=== PATIENT | male | born 1940 | race Caucasian/White ===

== ENCOUNTER → 2017-02-06 | Outpatient (CLI) | payer MEDICARE ==
[~2017-02-06] MED LIST: AMARYL PO; HYDROCODON-ACE1 EAC9 PO; HYDROCODONE/APA1 T16 PO; METFORMIN HCL1000 M1 PO; OMEPRAZOLE40 M1 PO; PHENERGAN25 MG PO
--- NOTE | ~2017-02-06 | CT2 ---
[facility] A Service of [facility] RADIOLOGY TEXT RESULTS PATIENT: EDITA SILVERIO LOCATION: [facility]AT : 42 UNIT #: [id number] AGE: [address]: lA Rocha MD SEX: M ORDER DR: [id number] [facility] [address] [place], [place] [address] [id number] O MR#: [id number] Acc #: [id number] NAME: EDITA SILVERIO : 1940 SEX: M STUDY DATE/TIME: 02/06/2017 7:10 UNIT: [facility] ROOM: STUDY DESCRIPTION: CT Abd and Pelv W Cont Attending Physician: Al Rocha M.D. Referring Physician: Al Rocha M.D. Ordering Physician: Al Rocha M.D. Primary Care Physician: Vickey Thomas M.D. MEDICAL IMAGING REPORT This report is preliminary unless electronic signature is present EXAM CT abdomen and pelvis, 02/06. INDICATION Status post sigmoid resection for colon cancer. Observation of malignant neoplasm. Restaging. TECHNIQUE Axial images were obtained through the abdomen and pelvis following IV contrast administration. Multiplanar reformats were obtained. This CT exam was performed with one or more of the following radiation dose reduction techniques: automatic exposure control, adjustment of mA and/or kV according to patient size, and iterative reconstruction. COMPARISON Comparison is made with PET/CT from 09/16/2016. FINDINGS ABDOMEN: Minimal atelectasis or scarring in the right lower lobe and lingula. Lung bases are otherwise clear. Gallbladder unremarkable. No biliary obstruction. Right renal cyst is again seen. The solid organs are otherwise normal. No adenopathy is identified. There is continued generalized mild wall thickening in the colon. There is a moderate stool volume. This is much improved from the prior PET/CT, however. Correlate clinically to exclude mild residual colitis. GI tract evaluation is limited without oral contrast. Small bowel is grossly normal. PELVIS: There is a left lower quadrant colostomy. There is some parastomal herniation of fat. The lower colon distal to the colostomy is unremarkable. The distal small bowel is grossly normal. Urinary bladder is normal. No adenopathy. There is a developing fat containing inguinal hernia on the right. No suspicious osseous lesions in the abdomen or STS. [facility] A Service of [facility] RADIOLOGY TEXT RESULTS PATIENT: EDITA SILVERIO LOCATION: [facility] : 42 UNIT #: [id number] AGE: [address]: Al Rocha MD SEX: M ORDER DR: pelvis. IMPRESSION 1. No evidence of metastatic disease in the abdomen or pelvis. 2. Moderate stool in the colon may indicate constipation. Patient does have a left lower quadrant colostomy. 3. Mild residual colonic wall thickening. This is much improved since the prior PET/CT but could still reflect mild residual colitis. Correlate clinically in this regard. Dictated by... Javid Tse Jr., M.D. THIS IS AN ELECTRONICALLY VERIFIED REPORT Javid Tse Jr., M.D. at 02/09/2017 3:49 PM DAWN/suzan TD: 02/09/2017 14:58 JOB #: [id number] MEDICAL IMAGING REPORT Page 1 of 1 COPY
[2017-02-06 07:00] LABS: POC - GFR >60.0 mL/min (>60)
== END | disposition home or self-care (01) ==
LOC: CCAT 05:39
PROVIDERS: Internal Medicine Hematology
DX: Z08 Encounter for follow-up examination after completed treatment for malignant neoplasm (principal); D50.9 Iron deficiency anemia, unspecified; K63.89 Other specified diseases of intestine; Z93.3 Colostomy status; Z90.49 Acquired absence of other specified parts of digestive tract; Z85.038 Personal history of other malignant neoplasm of large intestine
CPT/HCPCS: 74177; 82565; Q9967

== ENCOUNTER → 2017-03-11 | Day surgery (SDC) | payer MEDICARE ==
--- NOTE | ~2017-03-11 | EKG ---
PATIENT: EDITA SILVERIO UNIT #: [id number] Ventricular Rate: 72 BPM Atrial Rate: 72 BPM P-R Interval: 166 ms QRS Duration: 90 ms Q-T Interval: 402 ms QTC Calculation(Bezet): 440 ms P Adell: 54 degrees Calculated R Adell: 76 degrees Calculated T Adell: 62 degrees Diagnosis Line: Normal sinus rhythm Diagnosis Line: Normal ECG Diagnosis Line: When compared with ECG of 26-AUG-2016 07:17, Diagnosis Line: Questionable change in QRS axis Diagnosis Line: Nonspecific T wave abnormality no longer evident Diagnosis Line: in Inferior leads Diagnosis Line: Confirmed by JERRY BERGER MD ([id number]) on 03/11/2017 Diagnosis Line: 7:43:32 PM INTERPRETING MD: AB VALLES
--- NOTE | ~2017-03-11 | OR ---
Unit #: [id number] #: [id number] Patient: EDITA SILVERIO [id number] [facility] [address] [place], [place] [address] [id number] O MR#: [id number] NAME: EDITA SILVERIO ROOM: Date of Procedure: 03/11/2017 Admission Date: 03/11/2017 Surgeon: Javid Meyer M.D. : 1940 Attending Physician: Javid Meyer M.D. Primary Care Physician: Vickey Thomas M.D. OPERATIVE REPORT PREOPERATIVE DIAGNOSIS History of obstructing colon cancer. POSTOPERATIVE DIAGNOSIS History of obstructing colon cancer. PROCEDURE PERFORMED Proctoscopy with snare polypectomy x1 and proximal colonoscopy with cold biopsy forceps polypectomy x1 and tattooing of the site. ANESTHESIA Monitored anesthesia. INDICATIONS FOR PROCEDURE Mr. Silverio is a 76-year-old gentleman who initially presented with an obstructing colon cancer and underwent resection with end-colostomy formation. He has completed adjuvant therapy and his medical oncologist is deemed him free of disease and the patient requested reversal of his colostomy. The patient needs endoscopic evaluation before reversal because he has not had a previous complete colonoscopy and we need to clear his colon before surgery. DESCRIPTION OF PROCEDURE The patient was admitted to [facility], positively identified and transported to the endoscopy unit. After appropriate monitoring and positioning, he was placed in the supine position and frog-legged. Rectal examination was performed. There were no palpable abnormalities. Prostate was normal to exam. Colonoscope was passed through the anal verge up to the rectal remnant. The rectal remnant extended up to 40 cm. At 30 cm from the anal verge, there was a pedunculated polyp, which was removed by snare polypectomy with a good margin on the stalk. The polyp was recovered and sent for frozen section diagnosis, which is pending at this time. There was good hemostasis. No other abnormalities or findings in the rectal remnant were identified. We then passed the colonoscope through the stoma and throughout the extent of the colon to the cecum. On antegrade and retrograde visualization, a single sessile 8-mm polyp was identified in the transverse colon. It also was excised using the cold biopsy forceps and the area was tattooed for later identification if needed. Frozen section diagnosis is pending. The rest of the evaluation was unremarkable. The patient tolerated the procedure well, was transported to recovery in stable condition. Findings were discussed with the patient and his . We have him on the surgery Unit #: [id number] #: [id number] Patient: EDITA SILVERIO schedule for tomorrow for colostomy reversal. He was instructed to stay on a clear liquid diet and take the oral antibiotics today that were already prescribed. Dictated by... Don Yancey/lyric TD: 03/11/2017 08:41 JOB #: [id number] OPERATIVE REPORT Page 1 of 1 X Javid Meyer MD PROCEDURE OPERATIVE NOTE
[2017-03-11 07:15] LABS: BASOPHIL% 0.4 % (0-2.5); EOSINOPHIL# 0.1 X10e3 (0-0.7); EOSINOPHIL% 1.8 % (0.0-7.0); HEMATOCRIT 42.2 % (38.0-50.0); HEMOGLOBIN 14.1 gm/dL (13.0-16.0); LYMPHOCYTE# 1.7 X10e3 (1.0-3.5); MEAN CELL VOLUME 91.9 FL (83-96); MEAN CORPUSCULAR HEMOGLOBIN 30.6 PG (28-34); MEAN CORPUSCULAR HGB CONC 33.3 g/dL (30-36); MEAN PLATELET VOLUME 8.7 FL (6.5-11.5); MONOCYTE# 0.7 X10e3 (0-1.0); MONOCYTE% 10.9 % (3.0-12.0); NEUTROPHIL# 3.7 X10e3 (1.5-7.1); NEUTROPHIL% 59.9 % (40-75); PLATELET COUNT 200 X10e3 (140-420); RED CELL DISTRIBUTION WIDTH 17.1 % (11.0-15.5); WHITE BLOOD COUNT 6.2 X10e3 (4.0-10.5)
[2017-03-11 07:18] LABS: DIFF IND NO
[2017-03-11 07:38] LABS: ALBUMIN SERUM 4.3 g/dL (3.5-5.0); BILIRUBIN,TOTAL 0.6 mg/dL (0.2-2.0); BUN/CREATININE RATIO 11.66; CALCIUM SERUM 8.9 mg/dL (8.4-10.2); CREATININE SERUM 1.2 mg/dL (0.6-1.4); GLOM FILT RATE Estimated 59.2 mL/min (>60); POTASSIUM 3.8 mmol/L (3.5-5.1); PROTEIN TOTAL SERUM 7.6 g/dL (6.0-8.3)
== END | disposition home or self-care (01) ==
LOC: COPS 05:53
PROVIDERS: Specialist
DX: Z12.11 Encounter for screening for malignant neoplasm of colon (principal); D12.6 Benign neoplasm of colon, unspecified; K63.5 Polyp of colon; E11.9 Type 2 diabetes mellitus without complications; K21.9 Gastro-esophageal reflux disease without esophagitis; E89.0 Postprocedural hypothyroidism; Z85.038 Personal history of other malignant neoplasm of large intestine; Z79.84 Long term (current) use of oral hypoglycemic drugs; Z79.899 Other long term (current) drug therapy; Z90.49 Acquired absence of other specified parts of digestive tract; Z93.3 Colostomy status; Z98.41 Cataract extraction status, right eye; Z98.42 Cataract extraction status, left eye
CPT/HCPCS: 80053; 82378; 82947; 85025; 88305; 88331; 93005

== ENCOUNTER 2017-03-12 05:43 | Inpatient (IN) | payer MEDICARE ==
[~2017-03-12] VITALS: Ht 180.3 cm; Wt 89.6 kg
--- NOTE | ~2017-03-12 | OR ---
Unit #: [id number] #: [id number] Patient: EDITA SILVERIO [id number] [facility] [address] [place], [place] [address] [id number] I MR#: [id number] NAME: EDITA SILVERIO ROOM: [facility] Date of Procedure: 03/12/2017 Admission Date: 03/12/2017 Surgeon: Javid Meyer M.D. : 1940 Attending Physician: Javid Meyer M.D. Primary Care Physician: Vickey Thomas M.D. OPERATIVE REPORT PREOPERATIVE DIAGNOSIS History of obstructing colon cancer. POSTOPERATIVE DIAGNOSIS History of obstructing colon cancer. PROCEDURES PERFORMED Exploratory laparotomy, lysis of adhesions, reversal of colostomy with primary anastomosis, MediPort removal, mobilization of splenic flexure during procedure. [employer] Jeffydy. ANESTHESIA General endotracheal anesthesia. ESTIMATED BLOOD LOSS Less than 100 mL. INDICATIONS FOR PROCEDURE A 76-year-old gentleman, who initially presented with obstructing colon cancer, requiring emergent sigmoid colectomy with end-colostomy formation. He has completed his adjuvant therapy and has been deemed free of disease by his oncologist and the patient has requested reversal of his colostomy. Preoperative endoscopic evaluation ruled out any further intraluminal disease. DESCRIPTION OF PROCEDURE The patient admitted to [facility], positively identified, and transported to the operating room, and after induction of general endotracheal anesthesia, he received IV antibiotics per SCIP protocol. He was placed in Mejia stirrups and a Edmonds catheter was placed, and an orogastric tube was placed. His abdominal wall hair was shaved. His stoma was sewn closed with 2-0 silk suture and he had a rectal prep. He was then prepped and draped in usual sterile fashion. His old midline incision was excised with a wedge excision. We dissected down and entered into the peritoneal cavity. Omental adhesions were taken down from the anterior abdominal wall and the proximal colon was identified as it exited the peritoneal cavity into the abdominal wall. Small bowel adhesions were taken down and there was one area of nodularity on a loop of small bowel that was biopsied and it was a benign Unit #: [id number] #: [id number] Patient: EDITA SILVERIO inflammatory tissue and no evidence of any residual malignant disease. All the small bowel was run and no other abnormalities were noted except for a few adhesions which were easily taken down with sharp dissection. Once all the small bowel was mobilized, a Bookwalter retractor was placed to retract the abdominal wall and to pack off the small bowel and hold it in retraction. The distal rectosigmoid was mobilized. Once it was adequately mobilized, the proximal colon was dissected up to the level of the abdominal wall. It was divided with a BARBARA stapler and then the splenic flexure was mobilized, have adequate length for an anastomosis. The remaining stoma in the abdominal wall was dissected out and sent to the laboratory. The fascia was closed anteriorly with #1 Vicryl sutures in a transverse direction and then the peritoneum and muscle layer was closed vertically intraperitoneally. Once the distal rectosigmoid was adequately mobilized and the proximal colon was mobilized, the anterior tenia of the proximal colon was secured to the anterior border of the distal rectosigmoid with 3-0 silk suture. Colotomies were made and the full length of the BARBARA stapler was used to create a functional end-to-end [id number] stapled anastomosis. The open end was closed with inverting silk sutures and a second row of inverting silk sutures. The anastomosis was widely patent. The colon was placed along the left abdominal wall. There was excellent hemostasis. We irrigated copiously and again there was good hemostasis. The bowel was placed back in the anatomic position and the omentum was pulled over the bowel. The stomach was well decompressed with orogastric tube. The orogastric tube was removed. The fascia of the midline wound was closed with #1 Vicryl interrupted sutures. The soft tissue was irrigated with saline and Betadine at both the stoma site and the midline wound, and then the skin was closed with sterile skin slime. An occlusive dressing with Prevena wound device was placed and we had excellent vacuum with the device. Sponges and needle counts were correct x3. The patient was then taken out of banner and placed back in the supine position. The drapes were removed and his right arm was placed to the side. The chest wall was prepped and draped in usual sterile fashion and using new instruments, an incision was made in the MediPort and its fibrous capsule was dissected out of the subcutaneous tissue. The Silastic catheter was removed in its entirety from the subclavian vein and the tract was suture ligated with 3-0 silk suture. I irrigated and obtained hemostasis, infiltrated 30 mL of 0.5% Marcaine, and then closed the skin with 4-0 Monocryl subcuticular closure and Dermabond skin adhesive. Sponges and needle counts were correct x3. The patient tolerated the procedure well and was transported to recovery in stable condition. Findings and postoperative expectations were discussed with the family. Dictated by... Don Yancey/lyric TD: 03/12/2017 11:56 JOB #: [id number] Unit #: [id number] #: [id number] Patient: EDITA SILVERIO OPERATIVE REPORT Page 1 of 1 X Javid Meyer MD X PROCEDURE OPERATIVE NOTE
--- NOTE | ~2017-03-12 | DS ---
Unit #: [id number] #: [id number] Patient: EDITA SILVERIO [id number] [address] [place], [place] [address] [id number] I MR#: [id number] NAME: EDITA SILVERIO ROOM: 473 Age: 76 Sex: M Admission Date: 03/12/2017 : 1940 Discharge Date: 03/16/2017 Attending Physician: Javid Meyer M.D. Primary Care Physician: Vickey Thomas M.D. DISCHARGE SUMMARY ADMITTING AND FINAL DIAGNOSIS Desired takedown of colostomy. SECONDARY DIAGNOSES 1. Past history of adenocarcinoma of the sigmoid colon. 2. Chronic wound infection. BRIEF SUMMARY The patient is a 76-year-old white male who was brought in by Dr. Meyer for colostomy closure. He had a recent exploratory laparotomy with sigmoid resection and wound infection postop requiring a wound V.A.C. The patient desired closure of his colostomy, as noted above, and was brought in and, on day of admission, underwent this procedure. He also had a small bowel biopsy, which was benign on pathology. He is presently 4 days status post exploratory laparotomy with closure of his colostomy. He is tolerating a diet well, ambulating well. His wounds are clean. He has a wound V.A.C. in the midline of his abdomen with slime in the colostomy closure maile. His laboratory values have been normal except for hemoglobin in the range of 11.6 grams. He is ambulating well, afebrile and in satisfactory condition. The plan will be to discharge the patient home. He will be on a regular home diet and limited to lifting no more than 5-10 pounds. He will be on [place] 7.5 mg/325 mg 1 or 2 q.4-6 hours p.r.n. pain. He will be resuming all of his home medications including calling for an office visit with Dr. Meyer in approximately 1 week for staple removal. He will be keeping his wounds clean and dry and using the wound V.A.C. as indicated. Dictated by... Hima Rodriguez Jr., M.D. JENNIFER/manuel TD: 03/16/2017 11:09 JOB #: [id number] Unit #: [id number] #: [id number] Patient: EDITA SILVERIO SHANNAN DISCHARGE SUMMARY Page 1 of 1 X Hima Rodriguez MD X DISCHARGE SUMMARY
[~2017-03-12 05:43] MED LIST changes: -HYDROCODON-ACE1 EAC9 PO
[2017-03-13 04:08] LABS: HEMATOCRIT 34.9 % (38.0-50.0); MEAN CELL VOLUME 91.7 FL (83-96); MEAN CORPUSCULAR HGB CONC 32.7 g/dL (30-36); MEAN PLATELET VOLUME 9.4 FL (6.5-11.5); RED BLOOD COUNT 3.81 X10e (3.90-5.60); RED CELL DISTRIBUTION WIDTH 16.9 % (11.0-15.5)
[2017-03-13 04:20] LABS: HEMOGLOBIN 11.4 gm/dL (13.0-16.0); WHITE BLOOD COUNT 11.4 X10e3 (4.0-10.5)
[2017-03-13 04:33] LABS: BUN/CREATININE RATIO 12.85; CALCIUM SERUM 8.1 mg/dL (8.4-10.2); CREATININE SERUM 1.4 mg/dL (0.6-1.4); GLOM FILT RATE Estimated 49.2 mL/min (>60); MAGNESIUM 1.8 mg/dL (1.6-3.0); PHOSPHOROUS 3.4 mg/dL (2.5-4.6); POTASSIUM 4.2 mmol/L (3.5-5.1)
[2017-03-14 03:58] LABS: BASOPHIL% 0.2 % (0-2.5); DIFF IND NO; EOSINOPHIL# 0.1 X10e3 (0-0.7); EOSINOPHIL% 0.9 % (0.0-7.0); HEMATOCRIT 33.8 % (38.0-50.0); HEMOGLOBIN 11.3 gm/dL (13.0-16.0); LYMPHOCYTE% 9.9 % (17.0-45.0); MEAN CELL VOLUME 91.9 FL (83-96); MEAN CORPUSCULAR HEMOGLOBIN 30.7 PG (28-34); MEAN CORPUSCULAR HGB CONC 33.5 g/dL (30-36); MEAN PLATELET VOLUME 9.4 FL (6.5-11.5); MONOCYTE# 0.8 X10e3 (0-1.0); MONOCYTE% 8.2 % (3.0-12.0); NEUTROPHIL# 7.9 X10e3 (1.5-7.1); NEUTROPHIL% 80.8 % (40-75); PLATELET COUNT 158 X10e3 (140-420); RED BLOOD COUNT 3.68 X10e (3.90-5.60); RED CELL DISTRIBUTION WIDTH 16.9 % (11.0-15.5); WHITE BLOOD COUNT 9.8 X10e3 (4.0-10.5)
[2017-03-16] MEDS ORDERED: HYDROCODON-ACE1 EAC9 PO (08:56)
== END 2017-03-16 09:50 | disposition home or self-care (01) | DRG 331 ==
LOC: CSUR 05:43 → C4C 09:34 → CPACUOF 09:34 → CSUR 09:34 → CPACUOF 10:57 → C4C 12:19
PROVIDERS: Specialist
PROC: 0DBN0ZZ Excision of Sigmoid Colon, Open Approach (ICD-10-PCS; principal; 2017-03-12 07:30)
PROC: 0DB80ZX Excision of Small Intestine, Open Approach, Diagnostic (ICD-10-PCS; 2017-03-12 07:30)
DX: Z43.3 Encounter for attention to colostomy (principal); E11.9 Type 2 diabetes mellitus without complications; Z85.038 Personal history of other malignant neoplasm of large intestine; T81.4XXD Infection following a procedure, subsequent encounter; Z90.49 Acquired absence of other specified parts of digestive tract; Z79.84 Long term (current) use of oral hypoglycemic drugs
CPT/HCPCS: 80048; 82947; 83735; 84100; 85025; 85027; 88304; 88305; 88331; 94760; C9113; J0131; J1170; J1650; J1815; J1885; J2250; J2270; J2710; J2765; J3010